=== PATIENT | male | born 1950 | race Caucasian/White ===

== ENCOUNTER → 2021-04-30 | Outpatient (CLI) | payer MEDICARE, OTHER | LOC: M SOG 13:52 | PROVIDERS: ATTEND Orthopaedic Surgery Adult Reconstructive Orthopaedic Surgery | DX: M79.651 Pain in right thigh (principal); T14.90XA Injury, unspecified, initial encounter ==

== ENCOUNTER → 2022-03-18 | Outpatient (CLI) | payer MEDICARE, OTHER | LOC: M RAD 13:13 | PROVIDERS: ATTEND Orthopaedic Surgery | DX: M51.86 Other intervertebral disc disorders, lumbar region (principal) ==

== ENCOUNTER → 2022-04-01 | Outpatient (CLI) | payer MEDICARE, OTHER | LOC: M PLAIMG 09:10 | PROVIDERS: ATTEND Orthopaedic Surgery | DX: M47.27 Other spondylosis with radiculopathy, lumbosacral region (principal); M51.37 Other intervertebral disc degeneration, lumbosacral region; M51.27 Other intervertebral disc displacement, lumbosacral region ==

== ENCOUNTER → 2022-04-23 | Outpatient (CLI) | payer MEDICARE, OTHER ==
[2022-04-23 14:54] LABS: HEMOGLOBIN A1c 6.5 % (4.0-6.0)
[2022-04-23 15:19] LABS: THYROXINE (T4) 8.4 UG/DL (4.5-10.9)
[2022-04-23 15:20] LABS: THYROID STIMULATING HORMONE 3.467 uIU/ML (0.55-4.78)
[2022-04-23 15:21] LABS: FOLATE 11.42 NG/ML (>5.4); FREE THYROXINE INDEX 3.3 % (1.4-3.8); T UPTAKE 39.4 % (22.5-37.0)
== END ==
LOC: M PLALAB 11:08
PROVIDERS: ATTEND Psychiatry & Neurology Neurology
DX: D51.9 Vitamin B12 deficiency anemia, unspecified (principal); E03.9 Hypothyroidism, unspecified; E11.9 Type 2 diabetes mellitus without complications; R53.1 Weakness; G70.9 Myoneural disorder, unspecified

== ENCOUNTER 2022-10-05 08:51 | Outpatient (CLI) | payer MEDICARE, OTHER ==
[~2022-10-05] VITALS: Ht 170.2 cm; Wt 72.3 kg
[~2022-10-05 08:51] MED LIST: ALBUTEROL SULFATE 2.5MG/0.5ML INH NEB SOLN INH PRN; EPINEPHrine INJ 1 MG/ML 1ML AMP IM PRN; diphenhydrAMINE 50MG/ML VIAL IV PRN; methylPREDNISolone 125MG 2ML VIAL IV PRN
[2022-10-05 09:35] VITALS: BP 124/72; O2SAT 97
[2022-10-05] MEDS ORDERED: IMMUNE GLOBULIN 10% 30 GM in IV 1 EA IV ONE (10:00)
[2022-10-05] MEDS ORDERED: diphenhydrAMINE 25MG CAP PO ONE (10:00)
[2022-10-05] MEDS ORDERED: IMMUNE GLOBULIN 10% 5 GM in IV 1 EA IV ONE (10:00)
[2022-10-05] MEDS ORDERED: NS 1,000 ML IV SCH (10:00)
[2022-10-05] MEDS ORDERED: ACETAMINOPHEN TAB 650MG DOSE (2X325MG) PO ONE (10:00)
[2022-10-05 10:30] VITALS: BP 99/61; O2SAT 94
[2022-10-05 11:00] VITALS: BP 101/62; O2SAT 96
[2022-10-05 13:43] VITALS: BP 112/66; O2SAT 97
== END 2022-10-05 13:45 ==
LOC: M INFU 08:51
DX: M60.9 Myositis, unspecified (principal); T46.6X5A Adverse effect of antihyperlipidemic and antiarteriosclerotic drugs, initial encounter

== ENCOUNTER 2022-10-06 09:35 | Outpatient (CLI) | payer MEDICARE, OTHER ==
[~2022-10-06] VITALS: Ht 170.2 cm; Wt 71.0 kg
[2022-10-06 09:32] VITALS: BP 129/62; O2SAT 94
[~2022-10-06 09:35] MED LIST changes: +ACETAMINOPHEN TAB 650MG DOSE (2X325MG) PO ONE; +IMMUNE GLOBULIN 10% 30 GM in IV 1 EA IV ONE; +IMMUNE GLOBULIN 10% 5 GM in IV 1 EA IV ONE; +NS 1,000 ML IV SCH; +diphenhydrAMINE 25MG CAP PO ONE
[2022-10-06 10:58] VITALS: BP 101/59; O2SAT 94
[2022-10-06 13:48] VITALS: BP 108/64; O2SAT 97
== END 2022-10-06 13:45 ==
LOC: M INFU 09:35
DX: M60.9 Myositis, unspecified (principal); T46.6X5A Adverse effect of antihyperlipidemic and antiarteriosclerotic drugs, initial encounter

== ENCOUNTER 2022-10-07 10:35 | Outpatient (CLI) | payer MEDICARE, OTHER ==
[~2022-10-07] VITALS: Ht 170.2 cm; Wt 71.0 kg
[~2022-10-07 10:35] MED LIST changes: -ACETAMINOPHEN TAB 650MG DOSE (2X325MG) PO ONE; -IMMUNE GLOBULIN 10% 30 GM in IV 1 EA IV ONE; -IMMUNE GLOBULIN 10% 5 GM in IV 1 EA IV ONE; -NS 1,000 ML IV SCH; -diphenhydrAMINE 25MG CAP PO ONE
[2022-10-07 10:40] VITALS: O2SAT 95
[2022-10-07] MEDS ORDERED: IMMUNE GLOBULIN 10% 30 GM in IV 1 EA IV ONE (11:00)
[2022-10-07] MEDS ORDERED: diphenhydrAMINE 25MG CAP PO ONE (11:00)
[2022-10-07] MEDS ORDERED: NS 1,000 ML IV SCH (11:00)
[2022-10-07] MEDS ORDERED: ACETAMINOPHEN TAB 650MG DOSE (2X325MG) PO ONE (11:00)
[2022-10-07] MEDS ORDERED: IMMUNE GLOBULIN 10% 5 GM in IV 1 EA IV ONE (11:00)
[2022-10-07 12:00] VITALS: BP 107/63; O2SAT 94
[2022-10-07 12:30] VITALS: BP 118/62; O2SAT 98
[2022-10-07 13:00] VITALS: BP 118/72; O2SAT 97
[2022-10-07 13:30] VITALS: BP 118/67; O2SAT 97
[2022-10-07 14:44] VITALS: BP 112/73; O2SAT 97
== END 2022-10-07 14:45 ==
LOC: M INFU 10:35
DX: M60.9 Myositis, unspecified (principal); T46.6X5A Adverse effect of antihyperlipidemic and antiarteriosclerotic drugs, initial encounter

== ENCOUNTER 2022-10-08 10:10 | Outpatient (CLI) | payer MEDICARE, OTHER ==
[~2022-10-08] VITALS: Ht 170.2 cm; Wt 71.0 kg
[2022-10-08 10:10] VITALS: BP 129/76; O2SAT 96
[2022-10-08] MEDS ORDERED: IMMUNE GLOBULIN 10% 5 GM in IV 1 EA IV ONE (10:30)
[2022-10-08] MEDS ORDERED: ACETAMINOPHEN TAB 650MG DOSE (2X325MG) PO ONE (10:30)
[2022-10-08] MEDS ORDERED: diphenhydrAMINE 25MG CAP PO ONE (10:30)
[2022-10-08] MEDS ORDERED: IMMUNE GLOBULIN 10% 30 GM in IV 1 EA IV ONE (10:30)
[2022-10-08] MEDS ORDERED: NS 1,000 ML IV SCH (10:30)
[2022-10-08 11:30] VITALS: BP 113/63; O2SAT 96
[2022-10-08 12:00] VITALS: BP 110/63; O2SAT 96
[2022-10-08 12:30] VITALS: BP 114/68; O2SAT 97
[2022-10-08 13:30] VITALS: BP 116/56; O2SAT 96
[2022-10-08 14:20] VITALS: BP 108/62; O2SAT 97
== END 2022-10-08 14:20 | disposition home or self-care (01) ==
LOC: M INFU 10:10
PROVIDERS: ATTEND Psychiatry & Neurology Neurology
DX: M06.9 Rheumatoid arthritis, unspecified (principal); T46.6X5A Adverse effect of antihyperlipidemic and antiarteriosclerotic drugs, initial encounter

== ENCOUNTER 2022-11-10 09:10 | Outpatient (CLI) | payer MEDICARE, OTHER ==
[2022-11-10 09:10] VITALS: BP 126/68; O2SAT 97
[2022-11-10] MEDS ORDERED: ACETAMINOPHEN TAB 650MG DOSE (2X325MG) PO ONE (09:15)
[2022-11-10] MEDS ORDERED: IMMUNE GLOBULIN 10% 20 GM in IV 1 EA IV ONE ×2 (09:15→09:25)
[2022-11-10] MEDS ORDERED: IMMUNE GLOBULIN 10% 5 GM in IV 1 EA IV ONE (09:15)
[2022-11-10] MEDS ORDERED: diphenhydrAMINE 25MG CAP PO ONE (09:15)
[2022-11-10] MEDS ORDERED: NS 1,000 ML IV SCH (09:15)
[2022-11-10] MEDS ORDERED: IMMUNE GLOBULIN 10% 10 GM in IV 1 EA IV ONE (10:00)
[2022-11-10 10:30] VITALS: BP 105/63; O2SAT 100
[2022-11-10 11:00] VITALS: BP 109/60; O2SAT 100
[2022-11-10 11:30] VITALS: BP 96/59; O2SAT 100
[2022-11-10 12:30] VITALS: BP 116/66; O2SAT 100
[2022-11-10 13:20] VITALS: BP 126/73; O2SAT 98
== END 2022-11-10 13:20 ==
LOC: M INFU 09:10
PROVIDERS: ATTEND Psychiatry & Neurology Neurology
DX: M60.9 Myositis, unspecified (principal); T46.6X5A Adverse effect of antihyperlipidemic and antiarteriosclerotic drugs, initial encounter

== ENCOUNTER 2022-11-11 09:10 | Outpatient (CLI) | payer MEDICARE, OTHER ==
[~2022-11-11] VITALS: Ht 170.2 cm; Wt 72.0 kg
[2022-11-11 09:10] VITALS: BP 137/80; O2SAT 96
[2022-11-11] MEDS ORDERED: ACETAMINOPHEN 650MG PO PRIOR TO INFUSION PO ONE (09:20)
[2022-11-11] MEDS ORDERED: IMMUNE GLOBULIN 10% 30 GM in IV 1 EA IV ONE (09:20)
[2022-11-11] MEDS ORDERED: NS 1,000 ML IV SCH (09:20)
[2022-11-11] MEDS ORDERED: diphenhydrAMINE 25MG PO PRIOR TO INFUSION PO ONE (09:20)
[2022-11-11] MEDS ORDERED: IMMUNE GLOBULIN 10% 5 GM in IV 1 EA IV ONE (09:20)
[2022-11-11 10:30] VITALS: BP 116/66; O2SAT 96
[2022-11-11 11:00] VITALS: BP 112/55; O2SAT 96
[2022-11-11 12:00] VITALS: BP 114/65; O2SAT 97
[2022-11-11 13:20] VITALS: BP 121/77; O2SAT 96
== END 2022-11-11 13:30 ==
LOC: M INFU 09:10
PROVIDERS: ATTEND Psychiatry & Neurology Neurology
DX: M60.9 Myositis, unspecified (principal); T46.6X5A Adverse effect of antihyperlipidemic and antiarteriosclerotic drugs, initial encounter

== ENCOUNTER 2022-11-12 10:40 | Outpatient (CLI) | payer MEDICARE, OTHER ==
[~2022-11-12] VITALS: Ht 165.1 cm; Wt 77.2 kg
[2022-11-12] MEDS ORDERED: NS 1,000 ML IV SCH (10:55)
[2022-11-12] MEDS ORDERED: diphenhydrAMINE 25MG CAP PO ONE (10:55)
[2022-11-12] MEDS ORDERED: ACETAMINOPHEN TAB 650MG DOSE (2X325MG) PO ONE (10:55)
[2022-11-12] MEDS ORDERED: IMMUNE GLOBULIN 10% 10 GM in IV 1 EA IV ONE (11:00)
[2022-11-12] MEDS ORDERED: IMMUNE GLOBULIN 10% 5 GM in IV 1 EA IV ONE (11:00)
[2022-11-12] MEDS ORDERED: IMMUNE GLOBULIN 10% 30 GM in IV 1 EA IV ONE (11:00)
[2022-11-12 11:45] VITALS: BP 117/65; O2SAT 96
[2022-11-12 12:15] VITALS: BP 107/63; O2SAT 100
[2022-11-12 12:45] VITALS: BP 110/70; O2SAT 100
[2022-11-12 13:45] VITALS: BP 123/75; O2SAT 99
== END 2022-11-12 14:22 | disposition home or self-care (01) ==
LOC: M INFU 10:40
PROVIDERS: ATTEND Psychiatry & Neurology Neurology
DX: M60.9 Myositis, unspecified (principal); T46.6X5A Adverse effect of antihyperlipidemic and antiarteriosclerotic drugs, initial encounter

== ENCOUNTER 2022-12-21 08:30 | Outpatient (CLI) | payer MEDICARE, OTHER ==
[2022-12-21 08:30] VITALS: BP 126/73; O2SAT 96
[~2022-12-21 08:30] MED LIST changes: +NS 1,000 ML IV SCH
[2022-12-21] MEDS ORDERED: ACETAMINOPHEN 650MG PO PRIOR TO INFUSION PO ONE (08:40)
[2022-12-21] MEDS ORDERED: diphenhydrAMINE 25MG PO PRIOR TO INFUSION PO ONE (08:40)
[2022-12-21] MEDS ORDERED: IMMUNE GLOBULIN 10% 10 GM in IV 1 EA IV ONE ×2 (08:40→08:45)
[2022-12-21] MEDS ORDERED: IMMUNE GLOBULIN 10% 5 GM in IV 1 EA IV ONE ×2 (08:40→08:45)
[2022-12-21] MEDS ORDERED: IMMUNE GLOBULIN 10% 20 GM in IV 1 EA IV ONE ×2 (08:40→08:45)
[2022-12-21] MEDS ORDERED: IMMUNE GLOBULIN 10% 30 GM in IV 1 EA IV ONE (08:50)
[2022-12-21 09:30] VITALS: BP 118/60; O2SAT 96
[2022-12-21 10:00] VITALS: BP 120/61; O2SAT 96
[2022-12-21 10:30] VITALS: BP 109/64; O2SAT 96
[2022-12-21 11:30] VITALS: BP 119/65; O2SAT 99
[2022-12-21 12:19] VITALS: BP 119/72; O2SAT 94
== END 2022-12-21 12:20 | disposition home or self-care (01) ==
LOC: M INFU 08:30
PROVIDERS: ATTEND Psychiatry & Neurology Neurology
DX: M60.9 Myositis, unspecified (principal); T46.6X5A Adverse effect of antihyperlipidemic and antiarteriosclerotic drugs, initial encounter

== ENCOUNTER 2022-12-22 09:00 | Outpatient (CLI) | payer MEDICARE, OTHER ==
[~2022-12-22] VITALS: Ht 170.2 cm; Wt 78.2 kg
[2022-12-22 09:00] VITALS: BP 127/77; O2SAT 95
[~2022-12-22 09:00] MED LIST changes: -NS 1,000 ML IV SCH
[2022-12-22] MEDS ORDERED: NS 1,000 ML IV SCH (09:30)
[2022-12-22] MEDS ORDERED: IMMUNE GLOBULIN 10% 30 GM in IV 1 EA IV ONE (09:30)
[2022-12-22] MEDS ORDERED: IMMUNE GLOBULIN 10% 5 GM in IV 1 EA IV ONE (09:30)
[2022-12-22] MEDS ORDERED: diphenhydrAMINE 25MG PO PRIOR TO INFUSION PO ONE (09:30)
[2022-12-22] MEDS ORDERED: ACETAMINOPHEN 650MG PO PRIOR TO INFUSION PO ONE (09:30)
[2022-12-22 10:30] VITALS: BP 127/65; O2SAT 95
[2022-12-22 12:45] VITALS: BP 124/73; O2SAT 95
== END 2022-12-22 12:45 ==
LOC: M INFU 09:00
PROVIDERS: ATTEND Psychiatry & Neurology Neurology
DX: M60.9 Myositis, unspecified (principal); T46.6X5A Adverse effect of antihyperlipidemic and antiarteriosclerotic drugs, initial encounter

== ENCOUNTER 2022-12-23 09:57 | Outpatient (CLI) | payer MEDICARE, OTHER ==
[~2022-12-23] VITALS: Ht 170.2 cm; Wt 78.6 kg
[2022-12-23] MEDS ORDERED: IMMUNE GLOBULIN 10% 30 GM in IV 1 EA IV ONE (10:00)
[2022-12-23] MEDS ORDERED: IMMUNE GLOBULIN 10% 5 GM in IV 1 EA IV ONE (10:00)
[2022-12-23] MEDS ORDERED: ACETAMINOPHEN 650MG PO PRIOR TO INFUSION PO ONE (10:00)
[2022-12-23] MEDS ORDERED: NS 1,000 ML IV SCH (10:00)
[2022-12-23] MEDS ORDERED: diphenhydrAMINE 25MG PO PRIOR TO INFUSION PO ONE (10:00)
[2022-12-23 10:14] VITALS: BP 139/75; O2SAT 93
[2022-12-23 11:05] VITALS: BP 122/68; O2SAT 93
[2022-12-23 11:35] VITALS: BP 117/65; O2SAT 93
[2022-12-23 12:02] VITALS: BP 58/65; O2SAT 93
== END 2022-12-23 13:55 ==
LOC: M INFU 09:57
PROVIDERS: ATTEND Psychiatry & Neurology Neurology
DX: M60.9 Myositis, unspecified (principal); T46.6X5A Adverse effect of antihyperlipidemic and antiarteriosclerotic drugs, initial encounter

== ENCOUNTER 2022-12-24 08:42 | Outpatient (CLI) | payer MEDICARE, OTHER ==
[~2022-12-24] VITALS: Ht 170.2 cm; Wt 70.0 kg
[~2022-12-24 08:42] MED LIST changes: +IMMUNE GLOBULIN 10% 5 GM in IV 1 EA IV ONE
[2022-12-24 09:26] VITALS: BP 124/67; O2SAT 94
[2022-12-24] MEDS ORDERED: IMMUNE GLOBULIN 10% 30 GM in IV 1 EA IV ONE (09:30)
[2022-12-24] MEDS ORDERED: ACETAMINOPHEN TAB 650MG DOSE (2X325MG) PO ONE (09:30)
[2022-12-24] MEDS ORDERED: NS 1,000 ML IV SCH (09:30)
[2022-12-24] MEDS ORDERED: diphenhydrAMINE 25MG CAP PO ONE (09:30)
[2022-12-24] MEDS ORDERED: IMMUNE GLOBULIN 10% 5 GM in IV 1 EA IV ONE (09:30)
[2022-12-24 12:25] VITALS: BP 118/68; O2SAT 95
== END 2022-12-24 12:25 | disposition home or self-care (01) ==
LOC: M INFU 08:42
PROVIDERS: ATTEND Psychiatry & Neurology Neurology
DX: M60.9 Myositis, unspecified (principal); T46.6X5A Adverse effect of antihyperlipidemic and antiarteriosclerotic drugs, initial encounter

== ENCOUNTER → 2024-09-28 | Outpatient (CLI) | payer MEDICARE, OTHER | LOC: M CARPUL 11:18 | PROVIDERS: ATTEND Registered Nurse | DX: I08.0 Rheumatic disorders of both mitral and aortic valves (principal); G45.9 Transient cerebral ischemic attack, unspecified ==